=== PATIENT | male | born 1955 | race Caucasian/White ===

== ENCOUNTER 2021-12-16 07:48 | Day surgery (SDC) | payer BC ==
[2021-12-15 08:42] VITALS: BMI 33.3
[~2021-12-16 07:48] MED LIST: LACTATED RINGERS 1,000 ML IV SCH
[2021-12-16 08:15] VITALS: RESP 16; TEMP 97.6
[2021-12-16] MEDS ORDERED: LIDOCAINE 1% (10MG/ML) FOR IV START INTRADERMA ONE (08:24)
[2021-12-16] MEDS ORDERED: LIDOCAINE 1% INJ 10MG/ML (20 ML MDV) ONE (08:52)
[2021-12-16] MEDS ORDERED: PROPOFOL 10 MG/ML 20 ML VIAL IV ONE (08:52)
--- NOTE | 2021-12-16 09:00 | P.GSHP ---
History of Present Illness H&P Date: 12/16/21 Patient here today for colonoscopy. He thinks his last colonoscopy was 5-7 years ago. No bowel complaints. He has not had polyps previously. No family history of colon cancer. Past Medical History Past Medical History: Hypertension History of Any Multi-Drug Resistant Organisms: None Reported Additional Past Surgical History / Comment(s): COLONOSCOPY Past Anesthesia/Blood Transfusion Reactions: No Reported Reaction Smoking Status: Former smoker - Past Family History Mother Family Medical History: No Reported History Medications and Allergies Home Medications Medication Instructions Recorded Confirmed Type Enalapril [Vasotec] 20 mg PO BID 12/15/21 12/16/21 History amLODIPine [Norvasc] 5 mg PO BID 12/15/21 12/16/21 History Allergies Allergy/AdvReac Type Severity Reaction Status Date / Time Iodine and Iodide Containing Allergy Anaphylaxis Verified 12/16/21 08:12 Produc shellfish derived Allergy Anaphylaxis Verified 12/16/21 08:12 Surgical - Exam Vital Signs Temp Pulse Resp BP Pulse Ox 97.6 F 58 L 16 132/92 97 12/16/21 08:14 12/16/21 08:14 12/16/21 08:14 12/16/21 08:14 12/16/21 08:14 Physical exam: General: Well-developed, well-nourished HEENT: Normocephalic, sclerae nonicteric Abdomen: Nontender, nondistended Extremities: No edema Neuro: Alert and oriented Assessment and Plan (1) Colon cancer screening Narrative/Plan: Will proceed with colonoscopy Current Visit: Yes Status: Acute Code(s): Z12.11 - ENCOUNTER FOR SCREENING FOR MALIGNANT NEOPLASM OF COLON SNOMED Code(s): 259508314
--- NOTE | 2021-12-16 09:14 | P.PCN ---
Date of Procedure: 12/16/21 Procedure(s) Performed: PREOPERATIVE DIAGNOSIS: Colon cancer screening POSTOPERATIVE DIAGNOSIS: Colon polyps, diverticulosis PROCEDURE: Colonoscopy with snare polypectomy ANESTHESIA: MAC SURGEON: Jerry Vincent M.D. SPECIMENS: Colon polyps ENDOSCOPIC PROCEDURE: The patient was placed on the endoscopy table in the left decubitus position. The Olympus colonoscope was inserted into the anus and passed under direct visualization to the base of the cecum. The appendiceal orifice was visualized. From that point the scope was slowly withdrawn inspecting all surfaces carefully. There were no neoplastic inflammatory or polypoid lesions throughout the cecum. In the ascending colon a small polyp was seen and removed using the snare with cautery technique. The remainder of the ascending transverse descending and sigmoid appeared normal. In the rectum another small polyp was seen and removed in a similar fashion. The patient had extensive left-sided diverticulosis. Digital rectal examination was normal. The patient was taken to the recovery room in stable condition per anesthesia guidelines. RECOMMENDATIONS: Await biopsy results. Follow colonoscopy likely in 5 years.
[2021-12-16 09:37] VITALS: BP 123/86; PULSE 51
== END 2021-12-16 09:59 | disposition home or self-care (01) ==
LOC: ORWHC2ENDO 07:48
PROVIDERS: ATTEND Surgery
DX: Z12.11 Encounter for screening for malignant neoplasm of colon (principal); D12.8 Benign neoplasm of rectum; K63.5 Polyp of colon; K57.30 Diverticulosis of large intestine without perforation or abscess without bleeding; I10 Essential (primary) hypertension; Z87.891 Personal history of nicotine dependence; Z98.890 Other specified postprocedural states; Z79.899 Other long term (current) drug therapy; Z91.013 Allergy to seafood; Z91.048 Other nonmedicinal substance allergy status
CPT/HCPCS: 88305; 45385; J2001; J2704